=== PATIENT | female | born 1990 | race Two or more races ===

== ENCOUNTER 2021-07-23 00:43 | Emergency (ER) | payer OTHER ==
[~2021-07-23] VITALS: Ht 170.2 cm; Wt 74.8 kg
--- NOTE | 2021-07-23 01:00 | NUR ---
PT BIBSELF C/O LOWER BACK PAIN SINCE THIS AM. CAN CRIMPER TOOK IBUPROFEN 1400. + VOMITTING. PT ADVISED TO GO TO ER BY PMD. UTI YESTERDAY & ON ATB NOTROFURANTIN. PT A/OX4. TOLERATING R/A WELL WITH NO SOB.
--- NOTE | 2021-07-23 01:20 | NUR ---
URINE COLLECTED AND SENT TO LAB
--- NOTE | 2021-07-23 01:50 | NUR ---
STENCIL MAKER AT PT'S BEDSIDE
[2021-07-23 02:06] LABS: BILIRUBIN,URINE NEGATIVE (NEGATIVE); COLOR,URINE YELLOW (YELLOW); LEUKOCYTE ESTERASE ,URINE NEGATIVE (NEGATIVE); NITRITE, URINE NEGATIVE (NEGATIVE); PH,URINE 6.5 (5.0-8.0); PROTEIN,URINE NEGATIVE (NEGATIVE); UGLUCOSE NEGATIVE (NEGATIVE); UROBILINOGEN,URINE 0.2 EU/dL (0.2)
[2021-07-23 02:15] LABS: BASOPHILS % (AUTO) 0.4 % (0.0-2.0); EOSINOPHILS % (AUTO) 1.3 % (0.0-6.0); HEMATOCRIT 44 % (33-45); HEMOGLOBIN 14.3 g/dL (11.5-14.8); LYMPHOCYTES # (AUTO) 1.8 K/uL (0.8-4.8); LYMPHOCYTES % (AUTO) 28.8 % (20.0-44.0); MEAN CORPUSCULAR HGB CONC 33 g/dl (31.0-36.0); MEAN CORPUSCULAR VOLUME 85 fL (82-100); MONOCYTES # (AUTO) 0.4 K/uL (0.1-1.30); NEUTROPHILS % (AUTO) 63.5 % (43.0-81.0); PLATELET COUNT (AUTO) 189 K/uL (150-450); RED BLOOD CELL COUNT(AUTO) 5.18 MIL/uL (4.0-5.2); WHITE BLOOD COUNT (AUTO) 6.3 K/uL (4.3-11.0)
[2021-07-23 02:22] LABS: CALCIUM, SERUM 9.1 mg/dL (8.5-10.1); CREATININE 0.9 mg/dL (0.6-1.3); POTASSIUM 3.9 mmol/L (3.5-5.1)
[2021-07-23] MEDS ORDERED: CIPR500T5 PO (03:49)
--- NOTE | 2021-07-23 04:01 | NUR ---
Patient discharged to home in stable condition. RX Written and verbal after care instructions given. Patient verbalizes understanding of instruction. PT ambulatory with a steady gait
[2021-07-23 04:02] VITALS: BP 118/67
== END 2021-07-23 04:03 | disposition home or self-care (01) ==
LOC: ER 01:03
DX: R10.9 Unspecified abdominal pain (principal); R11.10 Vomiting, unspecified; Z88.2 Allergy status to sulfonamides
CPT/HCPCS: 36415; 80048-TC; 84703-TC; 85025-TC